=== PATIENT | male | born 1945 | race Caucasian/White ===

== ENCOUNTER 2017-05-09 17:34 | Inpatient (IN) ==
[2017-05-09] MEDS ORDERED: IPRATROPIUM/ALBUTEROL 2.5mg-0.5mg/3ml NEB AEROSOL ONE (18:23)
--- NOTE | 2017-05-09 18:24 | Emergency Department Report ---
General Adult HPI - General Chief complaint: Shortness of Breath/Dyspnea Stated complaint: Difficulty Breathing Time Seen by Provider: 05/09/17 18:10 Source: patient Mode of arrival: ambulatory Limitations: no limitations - History of Present Illness HPI narrative: 71-year-old male presents to emergency department with a chief complaint of a cough and shortness of breath. Patient has a history of COPD. Patient is on 2 L per nasal cannula at all time. Patient notes that on Wednesday of this past week he began experience a productive cough of cesar sputum. Patient notes improvement with his nebulizers. No other complaints or associated symptoms. Symptoms have been persistent in nature since onset. Patient was at home in independent living when his symptoms began. Symptoms have been persistent in nature since onset. Patient denies any pain or discomfort. This is similar to patient's prior symptoms in the past. - Related Data Home Medications Medication Instructions Recorded Confirmed Aspirin 325 mg PO DAILY #0 11/01/13 05/09/17 Atorvastatin Calcium [Lipitor] 10 mg PO DAILY #0 11/01/13 05/09/17 Etodolac 300 mg PO DAILY #0 11/01/13 05/09/17 Lisinopril 10 mg PO DAILY #0 02/11/16 05/09/17 Tamsulosin HCl [Flomax] 0.4 mg PO DAILY #0 02/11/16 05/09/17 Amlodipine Besylate 5 mg PO DAILY #0 08/26/16 05/09/17 Budesonide 0.5 mg IH PRN PRN 05/09/17 05/09/17 Dm/Acetaminophen/Doxylamine 30 ml PO Q4H PRN 05/09/17 05/09/17 [Nighttime Cold-Flu Liquid] Gabapentin [Gabapentin] 300 mg PO HS 05/09/17 05/09/17 Guaifenesin/Dextromethorphan 1 each PO Q4H PRN 05/09/17 05/09/17 [Guaifenesin Dm 400-20 mg Tab] Phenylephrine/Dm/Acetaminop/GG 2 each PO Q4H PRN 05/09/17 05/09/17 [Multi-Symptom Cold Caplet] Allergies Allergy/AdvReac Type Severity Reaction Status Date / Time No Known Allergies Allergy Unverified 05/09/17 17:44 Review of Systems Constitutional: Denies: fever, chills Eyes: Denies: eye discharge, vision change ENT: Denies: throat pain, dental pain Cardiovascular: Denies: chest pain, dyspnea on exertion Respiratory: Reports: cough, dyspnea, wheezes. Denies: hemoptysis Gastrointestinal: Denies: abdominal pain, nausea, vomiting, diarrhea Genitourinary: Denies: urgency, dysuria Musculoskeletal: Denies: back pain, joint swelling Integumentary: Denies: erythema, rash Neurological: Denies: headache, weakness Psychiatric: Denies: anxiety, depression Endocrine: Denies: fatigue, heat or cold intolerance Hematological/Lymphatic: Denies: easy bleeding, easy bruising Allergic/Immunologic: Denies: facial swelling, urticaria PFSH Patient Stated Medical History Chronic Obstructive Pulmonary Yes Disease (COPD) Other Musculoskeletal Yes: ARTHRITIS Surgical History: Back Surgery Family History: Negative. - Social History Smoking status: Former smoker Substance use type: does not use Alcohol intake frequency: does not drink Physical Exam - Limitations Limitations: no limitations - General General appearance: alert, in no apparent distress - Normal Exams: Head:: Normocephalic without trauma Eyes:: Pupils are PERRLA w/ EOMI, No scleral icterus, irritation, or foreign bodies noted ENMT:: No facial trauma, nasal exudates, pharyngeal erythema, or exudates are noted Dental: No fractured, loose, or missing teeth noted Neck:: Full range of motion, without adenopathy, JVD, bruits or thyromegaly Chest/Respirations:: with good airflow, and symmetry bilaterally (course bilateral breath sounds with scattered wheezes.) Cardiovascular:: Regular rate and rhythm, without murmur or gallop, Pulses 2+ all extremities, capillary refill, <2 seconds all extremities Abdomen:: Bowel sounds positive, soft, non-tender, non-distended, no hepatosplenomegaly, masses or bruits noted Lymphatic:: No lymphadenopathy, or lymphedema noted Musculoskeletal:: No tenderness, or deformity noted, good range of motion, all extremities Integumentary:: No rashes, hives, or bruising noted, hair and nails, without abnormality Neurological:: Patient is alert, and oriented, cranial nerves, motor/sensory/ cerebellar, exams w/o gross deficits, to observation Psychiatric:: Patient exhibits, appropriate attention, emotion and affect Course Vital Signs Temperature 98.9 F 06/18/17 17:45 Pulse Rate 111 H 05/09/17 17:45 Respiratory Rate 92 H 05/09/17 17:45 Blood Pressure 136/63 05/09/17 17:45 Pulse Oximetry 32 L 05/09/17 17:45 Temperature 98.9 F 05/09/17 17:45 Pulse Rate 93 05/09/17 21:00 Respiratory Rate 20 05/09/17 18:34 Blood Pressure 155/70 H 05/09/17 21:00 Pulse Oximetry 94 05/09/17 21:00 Medical Decision Making - [facility] Narrative Medical decision making narrative: Labs / imaging were discussed in detail with the patient and questions are answered. Patient is given 500 mL normal saline intravenously times one. Patient is given DuoNeb treatment in the emergency department with improvement of symptoms. Patient is given Levaquin 750 mg IV times one. Patient is given Solu-Medrol 125 mg IV times one. Patient is admitted to the service of the hospitalist in improved condition. Patient was discussed with Dr. Li and will be admitted to the service of Dr. Eden. Patient is in agreement with the current plan of management. Patient does not require 30 mL/kg of normal saline as he is not hypotensive in the emergency department he does not have a lactic acid greater than 4. Patient is admitted to the hospital in improved condition. No further orders from accepting or consulting physicians who were in agreement with the current plan of management. Levaquin 750 mg IV 1 was ordered at 1937 when sepsis was considered. - Differential Diagnosis COPD, pneumonia, viral syndrome, ACS - Lab Data Result diagrams: 05/09/17 18:39 05/09/17 18:39 Lab Results 05/09/17 05/09/17 05/09/17 Range/Units 18:38 18:39 18:39 WBC 14.7 H (4.5-11.0) T/MM3 RBC 3.82 L (4.50-5.90) M/MM3 Hgb 11.7 L (13.5-17.5) GM/DL Hct 37.4 L (41-53) % MCV 97.9 (80-100) UM3 MCH 30.6 (26-34) UUG MCHC 31.3 (31-37) GM/DL RDW Std Deviation 51.4 H (36.9-50.2) FL Plt Count 204 (130-400) T/MM3 MPV 11.3 (9.4-12.4) UM3 Immature Gran % (Auto) Not performed Neut % (Auto) Not performed Lymph % (Auto) Not performed Rosebud % (Auto) Not performed Eos % (Auto) Not performed Baso % (Auto) Not performed Neut # Not performed Lymph # Not performed Rosebud # Not performed Baso # Not performed Abs Immat Gran (auto) Not performed Neutrophils % (Manual) 73.0 H (33-66) % Band Neutrophils % 9.0 H (0-6) % Lymphocytes % (Manual) 12.0 L (23-45) % Monocytes % (Manual) 5.0 (0-9.0) % Eosinophils % (Manual) 1.0 (0-4) % Neutrophils # (Manual) 10.7 H (1.8-7.7) T/MM3 Band Neutrophils # 1.3 T/MM3 Lymphocytes # (Manual) 1.8 (1-4.8) T/MM3 Monocytes # (Manual) 0.7 (0-0.8) T/MM3 Eosinophils # (Manual) 0.1 (0-0.5) T/MM3 RBC Morph Comment 1+ ovalocytes Turbidity < 20 (0-20) Sodium 148 H (134-144) MEQ/L Potassium 3.9 (3.6-5) MEQ/L Chloride 104 (98-107) MEQ/L Carbon Dioxide 28 (22-30) MEQ/L Anion Gap 16 H (5-15) MEQ/L BUN 21.0 H (9-20) MG/DL Creatinine 1.0 (0.8-1.5) MG/DL GFR Calculation 73 BUN/Creatinine Ratio 21 (6-26) RATIO Glucose 184 H (75-110) MG/DL Calculated Osmolality 292 H (261-280) MOSM/KG Calcium 9.2 (8.4-10.2) MG/DL Total Bilirubin 0.70 (0.20-1.30) MG/DL Icterus Index < 2 (0-7) AST 17 (17-59) U/L ALT 33 (21-72) U/L Alkaline Phosphatase 148 H (38-126) U/L Troponin I 0.014 (0-0.12) ng/ml Total Protein 7.8 (6.3-8.2) G/DL Albumin 4.3 (3.5-5.0) G/DL Globulin 3.5 (2.4-3.6) G/DL Albumin/Globulin Ratio 1.2 (1.1-2.2) RATIO Plasma Lactate 1.3 (0.6-2.2) MMOL/L Procalcitonin 5.91 H* NG/ML Specimen Hemolysis < 15 (0-25) - Radiology Data CXR - bilateral infiltrates. otherwise no acute processes. - EKG Data EKG #1 EKG results narrative: Sinus tachycardia. Left bundle branch block. 100 beats per minute. No STEMI. Similar to 12/16/2016. Disposition Clinical Impression: Community acquired pneumonia, Acute exacerbation of chronic obstructive airways disease Condition: Improved Time of Disposition: 19:15 (Admit. Micha. ) - Seen By: physician
[2017-05-09] MEDS ORDERED: METHYLPREDNISOLONE SOD SUCC 125mg/2ml INJECTION IVP ONE (19:37)
[2017-05-09] MEDS ORDERED: NS 1,000 ML IV ONE (19:38)
[2017-05-09] MEDS ORDERED: LEVOFLOXACIN PREMIX 750 MG/150 ML BAG IV SCH (19:45)
--- NOTE | 2017-05-09 19:57 | XRay Report ---
EXAM: XR chest 2V HISTORY: Cough LOCATION OF DICTATION: [facility] COMPARISON: Prior examination dated 12/18/2016 FINDINGS: The cardiomediastinal silhouette is normal. The mediastinum is not widened. The trachea is midline. The pulmonary vascularity is not engorged. There is been interval development of bilateral lower lobe patchy alveolar and interstitial infiltrates and left upper lobe infiltrate. The costophrenic angles are sharp. The bony thorax is stable. IMPRESSION: 1. Interval development of bilateral patchy alveolar and interstitial infiltrates left greater than right. .
[2017-05-09] MEDS ORDERED: CALCIUM CARBONATE Chewable 500mg TABLET PO PRN (21:26)
[2017-05-09] MEDS ORDERED: ACETAMINOPHEN 325 MG TABLET PO PRN (21:26)
[2017-05-09] MEDS ORDERED: ONDANSETRON 4 MG/2 ML INJECTION IVP PRN (21:26)
[2017-05-09] MEDS: LR 1,000 ML IV SCH (21:40)
[2017-05-09] MEDS: METHYLPREDNISOLONE SOD SUCC 125mg/2ml INJECTION IVP SCH (22:10)
[2017-05-09] MEDS: BUDESONIDE INH.SOLN 0.5mg/2ml NEB IH SCH (22:30)
[2017-05-09] MEDS: ALBUTEROL 2.5mg/3ml (0.083%) NEB AEROSOL PRN (22:30)
--- NOTE | 2017-05-09 23:44 | History & Physical Report ---
History of Present Illness Date: 05/09/17 Chief complaint: cough, shortness of breath HPI: This is a 71 y/o male with h/o O2-dependent COPD, HTN, HLD and other medical issues who presents [place] [facility] [place] w/ chief concern of increasing cough and shortness of breath. Patient states that symptoms started this past w / "cold" symptoms and the cough and shortness of breath worse today despite "treating at home" so patient decided to come to ER. Patient states cough is productive of thick dark cesar sputum. Patient is normally on 2 L/min O2 per NC continuously however in ER requiring 3-4 L/min to keep sats > 90%. Patient denies f/c/s, denies chest pain, denies GRACE and denies change in bowel/ bladder function. In ED, patient received 2 Neb treatments w/ DuoNeb and started to feel better. In addition patient received 125mg IV SoluMedrol x one and IVFs. Patient on CXR noted to have bibasilar infiltrates c/w bilateral pneumonia. Patient's ProCalcitonin was 5.91, lactate not elevated, WBC = 14.7 w/ left shift and Na = 148 and K = 3.9. Patient's EKG showed old LBBB and troponin was negative. Patient received IV Levaquin 750mg x one in ER. Patient to be admitted to the Hospitalist service for further evaluation and management. Patient at the time that I saw him via In Touch technology had improved and stated that he felt less short of breath and his cough had improved. Review of Systems Review of systems: 10 point ROS negative except that as noted in the HPI - Integumentary/Breasts Integumentary: Absent: erythema, rash PFSH Patient Stated Medical History Dental Problems Yes: bridge for top teeth Hypertension Yes Chronic Obstructive Pulmonary Yes Disease (COPD) Other Musculoskeletal Yes: ARTHRITIS Medical History Updates: HLD; Smoked tobacco cigarettes for 52 years, quit in 2012 Surgical History: Back Surgery Family History: Patient states that he cannot think of any significant Family History - Social History Smoking status: Former smoker Medications Home Medications Medication Instructions Recorded Confirmed Type Aspirin 325 mg PO DAILY #0 11/01/13 05/09/17 History Atorvastatin Calcium [Lipitor] 10 mg PO DAILY #0 11/01/13 05/09/17 History Etodolac 300 mg PO DAILY #0 11/01/13 05/09/17 History Lisinopril 10 mg PO DAILY #0 02/11/16 05/09/17 History Tamsulosin HCl [Flomax] 0.4 mg PO DAILY #0 02/11/16 05/09/17 History Amlodipine Besylate 5 mg PO DAILY #0 08/26/16 05/09/17 History Budesonide 0.5 mg IH PRN PRN 05/09/17 05/09/17 History Dm/Acetaminophen/Doxylamine 30 ml PO Q4H PRN 05/09/17 05/09/17 History [Nighttime Cold-Flu Liquid] Gabapentin [Gabapentin] 300 mg PO HS 05/09/17 05/09/17 History Guaifenesin/Dextromethorphan 1 each PO Q4H PRN 05/09/17 05/09/17 History [Guaifenesin Dm 400-20 mg Tab] Phenylephrine/Dm/Acetaminop/GG 2 each PO Q4H PRN 05/09/17 05/09/17 History [Multi-Symptom Cold Caplet] Allergies Allergy/AdvReac Type Severity Reaction Status Date / Time No Known Allergies Allergy Unverified 05/09/17 17:44 Exam Vital Signs: Temp Pulse Resp BP Pulse Ox 98.9 F 95 16 155/70 H 94 05/09/17 22:53 05/09/17 22:53 05/09/17 22:53 05/09/17 21:00 05/09/17 22:53 Telemetry Ectopy: Bundle Branch Block Height: 1.73 m Weight: 85.2 kg Body Mass Index: 28.5 - Constitutional Present: no acute distress, well nourished, well developed - Routine HEENT Exam Head: Present: normocephalic, atraumatic Eye: Present: EOMI, PERRL. Absent: conjunctival icterus, scleral injection ENT: Present: mucous membranes dry - Routine Neck Exam Present: supple, full ROM. Absent: JVD - Routine Respiratory Exam Present: decreased breath sounds, prolonged expiratory phase, crackles (at the bases bilaterally). Absent: accessory muscle use, respiratory distress - Routine Cardiovascular Exam Present: S1, S2 - Routine Abdominal Exam Present: soft, normoactive bowel sounds, non distended. Absent: tenderness, non tender - Routine Extremities Exam Absent: cyanosis, clubbing, edema - Routine Neurological Exam Present: alert, oriented X3 - Routine Psychiatric Exam Present: normal affect, normal thought process, cooperative, good insight Results - Labs CBC & Chem 7: 05/09/17 18:39 05/09/17 18:39 Assessment and Plan (1) Acute exacerbation of chronic obstructive airways disease Current visit: Yes Status: Acute (2) Community acquired pneumonia Current visit: Yes Status: Acute Resuscitation Status: Full Code Assessment and Plan: Assessment: 1) Acute Sepsis POA - elevated WBC, tachycardia on admission, bandemia 2) Acute CAP POA 3) Acute exacerbation of COPD 4) Acute on Chronic hypoxic respiratory failure 5) HTN 6) HLD 7) Osteoarthritis Plan: Admit to Hospitalist service Continue IV Levaquin Solu-Medrol 125mg IV q 6 hours for now, then wean as indicated clinically DuoNeb QID Prn Albuterol nebs q 4 hours prn SCDs Budesonide BID RT consult IVFs at 75 cc/hour that of LR d/t patient's elevated sodium and K of 3.9 Labs in AM including ProCalcitonin Regular diet as tolerated I discussed the plan of care with the patient and the patient verbalized understanding and agreement. Sepsis Assessment - Focused Exam Vital Signs Temp Pulse Resp BP Pulse Ox 05/09/17 22:53 98.9 F 95 16 94 05/09/17 22:30 18 94 05/09/17 21:00 93 155/70 H 94 05/09/17 20:45 94 94 Hospital Course Summary Disclaimer: The visit summary below is not to be considered part of the above Progress Note.
[2017-05-10] MEDS: GABAPENTIN 300 MG CAPSULE PO SCH ×2 (00:05→21:00)
[2017-05-10] MEDS: METHYLPREDNISOLONE SOD SUCC 125mg/2ml INJECTION IVP SCH ×2 (03:40→09:29)
[2017-05-10] MEDS: ALBUTEROL 2.5mg/3ml (0.083%) NEB AEROSOL PRN ×2 (04:58→10:50)
[2017-05-10] MEDS: BUDESONIDE INH.SOLN 0.5mg/2ml NEB IH SCH ×2 (07:41→19:52)
[2017-05-10] MEDS: IPRATROPIUM/ALBUTEROL 2.5mg-0.5mg/3ml NEB IH SCH ×4 (07:41→19:52)
[2017-05-10] MEDS: AMLODIPINE 5 MG TABLET PO SCH (09:28)
[2017-05-10] MEDS: ATORVASTATIN 10 MG TABLET PO SCH (09:28)
[2017-05-10] MEDS: LISINOPRIL 10 MG TABLET PO SCH (09:28)
[2017-05-10] MEDS: TAMSULOSIN 0.4 MG CAPSULE PO SCH (09:28)
[2017-05-10] MEDS: ASPIRIN 325 MG TABLET PO SCH (09:28)
--- NOTE | 2017-05-10 10:18 | Progress Note ---
Subjective: Pt reports cough and sob is improved this am. Denies any cp, n/v/d, f/c. Would like his neurontin increased to bid. Objective Vital signs: Temp Pulse Resp BP Pulse Ox 96.4 F L 98 20 150/84 H 91 05/10/17 08:09 05/10/17 08:09 05/10/17 08:09 05/10/17 08:09 05/10/17 08:09 Weight: 85.9 kg - Constitutional Present: no acute distress, well nourished, well developed - Routine HEENT Exam Head: Present: normocephalic, atraumatic - Routine Respiratory Exam Absent: wheezes Comments: Decreased breath sounds in lower bases - Routine Cardiovascular Exam Present: no murmur, tachycardia - Routine Abdominal Exam Present: soft, non distended, non tender - Routine Extremities Exam Present: no edema. Absent: cyanosis, clubbing - Routine Skin Exam Present: dry, warm - Routine Neurological Exam Present: alert, oriented X3 Results - Labs CBC & Chem 7: 05/10/17 04:57 05/10/17 04:57 Assessment and Plan (1) Community acquired pneumonia Current visit: Yes Status: Acute (2) Acute exacerbation of chronic obstructive airways disease Current visit: Yes Status: Acute Assessment and Plan: Severe Sepsis 2/2 CAP -CXR shows L>R infiltrate, LA 2.4-->1.8 -Cont. Levaquin, steroids and breathing tx's -O2 requirement back to baseline at 2L O2 Acute exacerbation of COPD 2/2 CAP -Abx, breathing tx's, prednisone 40mg D2 -Improved Acute hypoxic resp. failure -On 2L O2 at home, was requiring 4L but back to 2L this am -Cont. O2 support, tx per above HTN -Cont. home amlodipine, lisinopril HLD -Cont. home statin Ppx -DVT-SCD Sepsis Assessment - Evaluation Sepsis screening result: Severe Sepsis Risk - Focused Exam Vital Signs Temp Pulse Resp BP Pulse Ox 05/10/17 08:09 96.4 F L 98 20 150/84 H 91 05/10/17 07:30 20 94 05/10/17 04:52 20 95 05/10/17 00:00 97.6 F 99 18 134/68 93 05/09/17 22:53 98.9 F 95 16 94 05/09/17 22:30 18 94 Respiratory exam: Present: decreased breath sounds, prolonged expiratory phase, crackles (at the bases bilaterally). Absent: accessory muscle use, respiratory distress Cardiovascular exam: Present: S1, S2 Capillary refill: < 2-3 Seconds Hospital Course Summary Disclaimer: The visit summary below is not to be considered part of the above Progress Note. Hospital Course: 05/10/17 10:18 Pt admitted with severe sepsis 2/2 CAP and COPD exacerbation. Responding to abx , breathing tx's, and steroid tx well. Will cont. to monitor.
[2017-05-10] MEDS ORDERED: 1/2 NS 1,000 ML IV SCH ×2 (11:06→11:23)
[2017-05-10] MEDS: LR 1,000 ML IV SCH (14:46)
[2017-05-10] MEDS: ETODOLAC 500 MG PO SCH (17:47)
[2017-05-10] MEDS ORDERED: LEVOFLOXACIN PREMIX 750 MG/150 ML BAG IV SCH (20:00)
[2017-05-10] MEDS ORDERED: BENZOCAINE/MENTHOL SORE THROAT LOZENGE MM PRN (21:25)
[2017-05-10] MEDS ORDERED: BENZONATATE 100 MG CAPSULE PO PRN (21:31)
[2017-05-11] MEDS: ALBUTEROL 2.5mg/3ml (0.083%) NEB AEROSOL PRN (02:55)
[2017-05-11] MEDS: IPRATROPIUM/ALBUTEROL 2.5mg-0.5mg/3ml NEB IH SCH ×4 (07:55→19:05)
[2017-05-11] MEDS: BUDESONIDE INH.SOLN 0.5mg/2ml NEB IH SCH ×2 (07:55→19:05)
--- NOTE | 2017-05-11 09:31 | Progress Note ---
Subjective: Pt doing well this am. Reports mild sob but overall feels much better then on admission. Denies any cp, n/v/d, f/c. Objective Vital signs: Temp Pulse Resp BP Pulse Ox 97 F 84 28 H 155/79 H 94 05/11/17 07:43 05/11/17 07:43 05/11/17 07:55 05/11/17 07:43 05/11/17 07:55 Rhythm: Normal Sinus Rhythm Weight: 86.7 kg - Constitutional Present: no acute distress, well nourished, well developed - Routine HEENT Exam Head: Present: normocephalic, atraumatic Eye: Present: EOMI ENT: Present: mucous membranes moist - Routine Respiratory Exam Present: wheezes Comments: mild expiratory wheezes - Routine Cardiovascular Exam Present: RRR, no murmur - Routine Abdominal Exam Present: soft, non distended, non tender - Routine Extremities Exam Present: no edema. Absent: cyanosis, clubbing - Routine Skin Exam Present: intact, dry, warm - Routine Neurological Exam Present: alert, oriented X3 Results - Labs CBC & Chem 7: 05/11/17 04:50 05/11/17 04:50 Assessment and Plan (1) Community acquired pneumonia Current visit: Yes Status: Acute (2) Acute exacerbation of chronic obstructive airways disease Current visit: Yes Status: Acute Assessment and Plan: Severe Sepsis 2/2 CAP -Severe sepsis resolved -Procal improving -CXR shows L>R infiltrate, LA 2.4-->1.8 -Cont. Levaquin D3 but changed to PO, steroids and breathing tx's -O2 requirement back to baseline at 2L O2 Acute exacerbation of COPD 2/2 CAP -Abx, breathing tx's, prednisone 40mg D3 -Improved Acute hypoxic resp. failure -Resolved -On 2L O2 at home, at baseline -Cont. O2 support, tx per above HTN -Cont. home amlodipine, lisinopril HLD -Cont. home statin Ppx -DVT-lovenox Sepsis Assessment - Evaluation Sepsis screening result: No Definite Risk - Focused Exam Vital Signs Temp Pulse Resp BP Pulse Ox 05/11/17 07:55 28 H 94 05/11/17 07:43 97 F 84 20 155/79 H 94 05/11/17 02:55 24 93 05/11/17 00:26 97.1 F 95 20 144/75 H 92 Respiratory exam: Present: decreased breath sounds, prolonged expiratory phase, crackles (at the bases bilaterally). Absent: accessory muscle use, respiratory distress Cardiovascular exam: Present: S1, S2 Capillary refill: < 2-3 Seconds Hospital Course Summary Disclaimer: The visit summary below is not to be considered part of the above Progress Note. Hospital Course: 05/10/17 10:18 Pt admitted with severe sepsis 2/2 CAP and COPD exacerbation. Responding to abx , breathing tx's, and steroid tx well. Will cont. to monitor. 05/11/17 09:31 Pt continues to improve with abx, steroids and breathing tx's. Will cont. to monitor and plan for discharge tomorrow.
[2017-05-11] MEDS: LISINOPRIL 10 MG TABLET PO SCH (09:51)
[2017-05-11] MEDS: AMLODIPINE 5 MG TABLET PO SCH (09:51)
[2017-05-11] MEDS: ATORVASTATIN 10 MG TABLET PO SCH (09:52)
[2017-05-11] MEDS: ETODOLAC 500 MG PO SCH (09:52)
[2017-05-11] MEDS: TAMSULOSIN 0.4 MG CAPSULE PO SCH (09:52)
[2017-05-11] MEDS: PredniSONE 20 MG TABLET PO SCH (09:52)
[2017-05-11] MEDS: ASPIRIN 325 MG TABLET PO SCH (09:55)
[2017-05-11] MEDS: ENOXAPARIN 40 MG/0.4 ML INJECTION SQ SCH (12:38)
[2017-05-11] MEDS: LEVOFLOXACIN 750 MG TABLET PO SCH (16:10)
[2017-05-11] MEDS: GABAPENTIN 300 MG CAPSULE PO SCH (21:06)
[2017-05-12] MEDS: LEVOFLOXACIN 750 MG TABLET PO SCH (05:47)
[2017-05-12] MEDS: IPRATROPIUM/ALBUTEROL 2.5mg-0.5mg/3ml NEB IH SCH ×2 (07:47→10:56)
[2017-05-12] MEDS: BUDESONIDE INH.SOLN 0.5mg/2ml NEB IH SCH (07:47)
[2017-05-12] MEDS: ETODOLAC 500 MG PO SCH (09:03)
[2017-05-12] MEDS: ASPIRIN 325 MG TABLET PO SCH (09:03)
[2017-05-12] MEDS: ENOXAPARIN 40 MG/0.4 ML INJECTION SQ SCH (09:03)
[2017-05-12] MEDS: PredniSONE 20 MG TABLET PO SCH (09:04)
[2017-05-12] MEDS: TAMSULOSIN 0.4 MG CAPSULE PO SCH (09:04)
[2017-05-12] MEDS: AMLODIPINE 5 MG TABLET PO SCH (09:04)
[2017-05-12] MEDS: ATORVASTATIN 10 MG TABLET PO SCH (09:04)
[2017-05-12] MEDS: LISINOPRIL 10 MG TABLET PO SCH (09:04)
--- NOTE | 2017-05-12 10:32 | Discharge Summary ---
Discharge Plan - Med Rec/Dispo Referrals/Follow Up: Levi Swartz MD [Family Provider] - 1 Week (Please schedule follow up apt for 1 week) [place] Instructions: COPD (Chronic Obstructive Pulmonary Disease) (GEN), Pneumonia (GEN) Prescriptions: New Acetaminophen [Tylenol] 650 mg PO Q5HR PRN PRN Reason: Discomfort Albuterol Neb (0.083%) [Proventil Neb (0.083%)] 2.5 mg AEROSOL Q2H PRN #1 ampul PRN Reason: shortness of breath Benzonatate [Tessalon Perles] 100 mg PO TID PRN #20 cap PRN Reason: Cough Levofloxacin [Levaquin] 750 mg PO ACB #6 CALCIUM CARBONATE Chewable [Tums] 1,000 mg PO Q4H PRN PRN Reason: Dyspepsia PredniSONE [Deltasone] 40 mg PO WB #4 Continue Atorvastatin Calcium [Lipitor] 10 mg PO DAILY #0 Tamsulosin HCl [Flomax] 0.4 mg PO DAILY #0 Lisinopril 10 mg PO DAILY #0 Amlodipine Besylate 5 mg PO DAILY #0 Gabapentin 300 mg PO HS Budesonide 0.5 mg IH PRN PRN PRN Reason: Shortness Of Air Etodolac 300 mg PO DAILY #0 Aspirin 325 mg PO DAILY #0 No Action Guaifenesin/Dextromethorphan [Guaifenesin Dm 400-20 mg Tab] 1 each PO Q4H PRN PRN Reason: Cold Symptoms Phenylephrine/Dm/Acetaminop/GG [Multi-Symptom Cold Caplet] 2 each PO Q4H PRN PRN Reason: Cold Symptoms Dm/Acetaminophen/Doxylamine [Nighttime Cold-Flu Liquid] 30 ml PO Q4H PRN PRN Reason: Cold Symptoms Discharge Instructions/Outpatient Orders: Final Provider Discharge Instructions Location: Determined By Patient - Disposition 01 Discharged Home, Self-Care
--- NOTE | 2017-05-12 11:41 | Discharge Summary ---
Discharge Information Date of admission: 05/09/17 20:43 Attending Physician: Jw Eden MD Primary care physician: Levi Swartz MD - Discharge Diagnosis (1) Community acquired pneumonia Status: Acute (2) Acute exacerbation of chronic obstructive airways disease Status: Acute - Laboratory Labs: 05/11/17 04:50 05/11/17 04:50 History of Present Illness HPI: This is a 71 y/o male with h/o O2-dependent COPD, HTN, HLD and other medical issues who presents to [facility] ER w/ chief concern of increasing cough and shortness of breath. Patient states that symptoms started this past w / "cold" symptoms and the cough and shortness of breath worse today despite "treating at home" so patient decided to come to ER. Patient states cough is productive of thick dark cesar sputum. Patient is normally on 2 L/min O2 per NC continuously however in ER requiring 3-4 L/min to keep sats > 90%. Patient denies f/c/s, denies chest pain, denies GRACE and denies change in bowel/ bladder function. In ED, patient received 2 Neb treatments w/ DuoNeb and started to feel better. In addition patient received 125mg IV SoluMedrol x one and IVFs. Patient on CXR noted to have bibasilar infiltrates c/w bilateral pneumonia. Patient's ProCalcitonin was 5.91, lactate not elevated, WBC = 14.7 w/ left shift and Na = 148 and K = 3.9. Patient's EKG showed old LBBB and troponin was negative. Patient received IV Levaquin 750mg x one in ER. Patient to be admitted to the Hospitalist service for further evaluation and management. Patient at the time that I saw him via In Touch technology had improved and stated that he felt less short of breath and his cough had improved. Hospital Course Hospital course: Brief Summary was admitted with severe sepsis 2/2 CAP with CXR showing L>R bibasilar infiltrate. Pt was also diagnosed with COPD exacerbation 2/2 pna. Pt did well with Levaquin, breathing tx's and prednisone. Pt's procalcitonin trended from ~6 to ~1. Blood cx's were negative, respiratory viral panel was negative as well. Pt was doing well on day of discharge and was on his baseline 2L O2. Pt was sent out on 10 day total levaquin tx and 5 day total of Prednisone Discharge Plan - Med Rec/Dispo Referrals/Follow Up: Levi Swartz MD [Family Provider] - 1 Week (Please schedule follow up apt for 1 week [phone] APPOITMENT WITH [facility]AG[facility] 05/19 9:30.) [facility] Instructions: COPD (Chronic Obstructive Pulmonary Disease) (GEN), Pneumonia (GEN) Prescriptions: New Acetaminophen [Tylenol] 650 mg PO Q5HR PRN PRN Reason: Discomfort Albuterol Neb (0.083%) [Proventil Neb (0.083%)] 2.5 mg AEROSOL Q2H PRN #1 ampul PRN Reason: shortness of breath Benzonatate [Tessalon Perles] 100 mg PO TID PRN #20 cap PRN Reason: Cough Levofloxacin [Levaquin] 750 mg PO ACB #6 CALCIUM CARBONATE Chewable [Tums] 1,000 mg PO Q4H PRN PRN Reason: Dyspepsia PredniSONE [Deltasone] 40 mg PO WB #4 Continue Atorvastatin Calcium [Lipitor] 10 mg PO DAILY #0 Tamsulosin HCl [Flomax] 0.4 mg PO DAILY #0 Lisinopril 10 mg PO DAILY #0 Amlodipine Besylate 5 mg PO DAILY #0 Gabapentin 300 mg PO HS Budesonide 0.5 mg IH PRN PRN PRN Reason: Shortness Of Air Etodolac 300 mg PO DAILY #0 Aspirin 325 mg PO DAILY #0 No Action Guaifenesin/Dextromethorphan [Guaifenesin Dm 400-20 mg Tab] 1 each PO Q4H PRN PRN Reason: Cold Symptoms Phenylephrine/Dm/Acetaminop/GG [Multi-Symptom Cold Caplet] 2 each PO Q4H PRN PRN Reason: Cold Symptoms Dm/Acetaminophen/Doxylamine [Nighttime Cold-Flu Liquid] 30 ml PO Q4H PRN PRN Reason: Cold Symptoms Discharge Instructions/Outpatient Orders: Final Provider Discharge Instructions Location: Determined By Patient - Disposition 01 Discharged Home, Self-Care
== END 2017-05-12 13:30 | disposition home or self-care (01) | DRG 871 ==
LOC: ED 17:34 → MED 20:43
PROVIDERS: ADMIT Internal Medicine; ATTEND Hospitalist

== ENCOUNTER 2017-12-16 15:47 | Observation (INO) ==
[2017-12-16] MEDS ORDERED: SALINE FLUSH 10ml SYRINGE IVF PRN (15:54)
[2017-12-16] MEDS ORDERED: ASPIRIN 81 MG CHEWABLE TABLET PO ONE (16:07)
--- NOTE | 2017-12-16 16:08 | Emergency Department Report ---
SOB HPI - General Chief Complaint: Shortness of Breath/Dyspnea Stated Complaint: SOA Time Seen by Provider: 12/16/17 15:54 Source: patient Mode of arrival: EMS Limitations: no limitations - History of Present Illness He has been a little more short of breath today at home. He lives at [facility] in the assisted living unit. He got up to walk to the kitchen to make some food around 1500. He felt onset of worsening SOA. Went back to his living room and started Albuterol neb. He does wear O2 at 3L per NC. He called for the nurses to come help and they called 911. Per EMS his RA sats were 75%. He had the canula on but the O2 was not on. They did give Solumedrol 125mg and gave Albuterol x3. Upon arrival he is tachypneic but speaking in several word sentences. Does deny any chest pain. Noted tachycardia on the monitor with possible vtach vs bundle branch. EKG done and does show left bundle with some possible St changes. EKG given to Dr Seth to overread. 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 Does feel like his breathing is improving. Complaint: shortness of breath Onset (ago): hour(s) Severity: severe Consistency/Duration: constant Relieving factors: nothing Exacerbating factors: movement Known history of: COPD Associated symptoms: wheezing - Related Data Home Medications Medication Instructions Recorded Confirmed Etodolac 300 mg PO DAILY #0 11/01/13 12/16/17 Tamsulosin HCl [Flomax] 0.4 mg PO HS #0 02/11/16 12/16/17 Budesonide 0.5 mg IH PRN PRN 05/09/17 12/16/17 Gabapentin 600 mg PO BID 05/09/17 12/16/17 Amlodipine [Norvasc] 5 mg PO DAILY 11/18/17 12/16/17 Aspirin 325 mg PO DAILY 11/18/17 12/16/17 Guaifenesin [Mucinex] 400 mg PO Q4H PRN 11/18/17 12/16/17 Lisinopril [Prinivil] 10 mg PO DAILY 11/18/17 12/16/17 Acetaminophen 650 mg PO Q5H PRN 12/16/17 12/16/17 Atorvastatin [Lipitor] 10 mg PO HS 12/16/17 12/16/17 Benzonatate [Tessalon Perles] 100 mg PO TID PRN 12/16/17 12/16/17 Calcium Carbonate [Calci-Chew] 1,000 mg PO Q4H PRN 12/16/17 12/16/17 Cpm/PE/Dm/Acetaminophen/Guaifn 2 cap PO Q4H PRN 12/16/17 12/16/17 [Tylenol Cold-Flu Day-Nt Caplet] Dm/Acetaminophen/Doxylamine 30 ml PO Q4H PRN 12/16/17 12/16/17 [Nighttime Cold-Flu Liquid] Loratadine [Claritin] 10 mg PO DAILY PRN 12/16/17 12/16/17 Pramipexole Di-HCl [Mirapex] 0.25 mg PO HS 12/16/17 12/16/17 Previous Rx's Medication Instructions Recorded Albuterol Neb (0.083%) [Proventil 2.5 mg AEROSOL Q2H PRN #1 ampul 05/12/17 Neb (0.083%)] Allergies Allergy/AdvReac Type Severity Reaction Status Date / Time No Known Allergies Allergy Verified 12/16/17 16:40 Review of Systems Constitutional: Denies: fever, chills, weakness Cardiovascular: Denies: chest pain, palpitations, dyspnea on exertion, edema Respiratory: Reports: dyspnea. Denies: cough, wheezes Gastrointestinal: Denies: abdominal pain, nausea, vomiting, diarrhea Integumentary: Denies: rash Neurological: Denies: headache, weakness, numbness, paresthesias PFSH Patient Stated Medical History Dental Problems Yes: bridge for top teeth Hypertension Yes Chronic Obstructive Pulmonary Yes: emphysema Disease (COPD) Hx Benign Prostatic Yes Hyperplasia Other Musculoskeletal Yes: ARTHRITIS, RLS Clinic Medical History (Last Reviewed 12/05/17 @ 11:02 by DRAGAN Sher) Hypertension (Chronic Medical) Hyperlipemia (Chronic Medical) COPD (chronic obstructive pulmonary disease) (Chronic Medical) Enlarged prostate (Chronic Medical) Restless leg syndrome (Chronic Medical) Medical History Updates: HLD; Smoked tobacco cigarettes for 52 years, quit in 2012 Surgical History: *Back Surgery 2005. *Colonoscopy 2004 Family History: Family History (Last Reviewed 12/05/17 @ 11:03 by DRAGAN Sher) Other No significant family history - Social History Smoking status: Former smoker Physical Exam - Limitations Limitations: no limitations - General General appearance: alert, in no apparent distress - Normal Exams: ENMT:: No facial trauma, nasal exudates, pharyngeal erythema, or exudates are noted Neck:: Full range of motion, without adenopathy, JVD, bruits or thyromegaly Abdomen:: Bowel sounds positive, soft, non-tender, non-distended, no hepatosplenomegaly, masses or bruits noted Lymphatic:: No lymphadenopathy, or lymphedema noted Integumentary:: No rashes, hives, or bruising noted Neurological:: Patient is alert, and oriented Psychiatric:: Patient exhibits, appropriate attention, emotion and affect - Respiratory Respiratory exam: Present: wheezes (throughout, diminished throughout, decreased lung sounds, tachypneic) - Cardiovascular Cardiovascular exam: Present: tachycardia Course Vital Signs Pulse Oximetry 94 12/16/17 15:47 Temperature 96.3 F L 12/17/17 07:34 Pulse Rate 69 12/17/17 08:00 Respiratory Rate 20 12/17/17 11:10 Blood Pressure 156/73 H 12/17/17 07:34 Pulse Oximetry 96 12/17/17 11:10 Shortness of Breath/Dyspnea - [facility] Narrative Medical decision making narrative: 1610- Dr Cates paged and to ER. Comparison of old EKG from September 2017 does show that the left bundle is new. No cardiac history or cardiology visits in the past. Dr Cates to room for patient evaluation. Would recommend admission and workup with echo after labs and chest xray complete. Noted pulse down to 113 and underlying sinus rhythm. He does feel better with the breathing. Did talk with Dr Palma regarding new EKG changes and the discussion with Dr Cates. He will accept patient for OBS admission. - Lab Data Attestation: I reviewed the patient's lab results. Result diagrams: 12/17/17 06:36 12/17/17 06:36 Lab Results 12/16/17 12/16/17 12/16/17 Range/Units 16:06 16:06 16:06 WBC 12.7 H (4.5-11.0) T/MM3 RBC 4.23 L (4.50-5.90) M/MM3 Hgb 12.7 L (13.5-17.5) GM/DL Hct 40.3 L (41-53) % MCV 95.3 (80-100) UM3 MCH 30.0 (26-34) UUG MCHC 31.5 (31-37) GM/DL RDW Std Deviation 48.0 (36.9-50.2) FL Plt Count 196 (130-400) T/MM3 MPV 10.2 (9.4-12.4) UM3 Immature Gran % (Auto) 0.2 (0.0-0.5) % Neut % (Auto) 66.4 H (33-66) % Lymph % (Auto) 20.2 L (23-45) % [place] % (Auto) 9.4 H (0-9.0) % Eos % (Auto) 3.6 (0-4) % Baso % (Auto) 0.2 (0-2) % Neut # (Auto) 8.4 H (1.8-7.7) T/MM3 Lymph # (Auto) 2.6 (1-4.8) T/MM3 [place] # (Auto) 1.2 H (0-0.8) T/MM3 Eos # (Auto) 0.5 (0-0.5) T/MM3 Baso # (Auto) 0.0 (0-0.2) T/MM3 Abs Immat Gran (auto) 0.02 (0.00-0.03) T/MM3 D-Dimer 210 (0-230) NG/ML Turbidity < 20 (0-20) Sodium 142 (134-144) MEQ/L Potassium 4.1 (3.6-5) MEQ/L Chloride 102 (98-107) MEQ/L Carbon Dioxide 29 (22-30) MEQ/L Anion Gap 11 (5-15) MEQ/L BUN 17.0 (9-20) MG/DL Creatinine 0.9 (0.8-1.5) MG/DL GFR Calculation 83 BUN/Creatinine Ratio 19 (6-26) RATIO Glucose 130 H (75-110) MG/DL Calculated Osmolality 277 (261-280) MOSM/KG Calcium 9.0 (8.4-10.2) MG/DL Icterus Index < 2 (0-7) Troponin I < 0.012 (0-0.12) ng/ml Specimen Hemolysis < 15 (0-25) - Radiology Data Attestation: I reviewed the patient's radiology results. Date of Exam: 12/16/17 Ordering Provider: Munira Boles APRN Type of Exam(s): XR chest 2V Reason for Exam(s): dyspnea EXAM: XR chest 2V COMPARISON: 11/10/2017. 10/09/2017. 12/16/2016. HISTORY: dyspnea . FINDINGS:The lungs are hyperinflated with flattening of the diaphragms and increased AP diameter which could be related to chronic emphysematous changes. The cardiomediastinal silhouette is within limits of normal. The pulmonary vascularity appears unremarkable. The lungs are clear. There is no evidence for pleural effusion. There is no evidence for a pneumothorax. No osseous abnormalities are identified. IMPRESSION: No acute process identified. LOCATION OF DICTATION: [facility] [place] . Disposition Clinical Impression: COPD exacerbation, Left bundle branch block (LBBB) Disposition: 02 To [facility] Condition: Stable Time of Disposition: 17:20 - Seen By: midlevel
--- NOTE | 2017-12-16 16:53 | XRay Report ---
EXAM: XR chest 2V COMPARISON: 11/10/2017. 10/09/2017. 12/16/2016. HISTORY: dyspnea . FINDINGS:The lungs are hyperinflated with flattening of the diaphragms and increased AP diameter which could be related to chronic emphysematous changes. The cardiomediastinal silhouette is within limits of normal. The pulmonary vascularity appears unremarkable. The lungs are clear. There is no evidence for pleural effusion. There is no evidence for a pneumothorax. No osseous abnormalities are identified. IMPRESSION: No acute process identified. LOCATION OF DICTATION: [facility] [place] .
[2017-12-16 17:49] VITALS: BMI 30.4
--- NOTE | 2017-12-16 18:41 | History & Physical Report ---
History of Present Illness Date: 12/16/17 Chief complaint: Dyspnea, chest pressure HPI: Steve is a pleasant 72-year-old male with a known history of COPD and chronic oxygen dependency at 3 liters. He reports today around 1530. He was ambulating in the kitchen to make some food and had a sudden onset of increased shortness of breath. He gave himself albuterol nebulizer, however, this did not resolve his symptoms. He called nursing staff for assistance and called EMS. Patient was found to have room air saturations of 75%. Workup in the emergency room was performed. Count was found be slightly elevated at 12.7, hemoglobin 12.7, neutrophils 66%. Chemistry panel unremarkable. Troponin is undetectable, less than 0.012. EKG did reveal a new left bundle branch block was not present in September 2017. A chest x-ray showed no acute cardiopulmonary findings. Given the symptoms of shortness of breath with chest pressure accompanied with EKG changes, Dr. Cates was contacted and recommended admission for further cardiac evaluation and rule out. The hospitalist services were contacted and accepted patient for outpatient admission for further evaluation and treatment. It is expected that his stay will be less than 2 overnights Review of Systems All systems PM: 10-point ROS was reviewed, no additional remarkable complaints except - Cardiovascular Cardiovascular: Present: chest pain, dyspnea on exertion - Respiratory Respiratory: Present: dyspnea, dyspnea on exertion, wheezing Past Medical History Patient Stated Medical History COPD chronic oxygen use at 3 liters Hypertension BPH Hyperlipidemia Restless legs Medical History Updates: HLD; Smoked tobacco cigarettes for 52 years, quit in 2012 Surgical History: *Back Surgery 2005. *Colonoscopy 2004 Family History Updates: Father at age 40 from a "torn heart" during exertional work. Mother lived into her 80s without significant medical problems - Social History Smoking status: Former smoker Substance use type: does not use Alcohol intake frequency: does not drink Housing: assisted living facility Current occupational status: retired Current residence: Assisted Living Social history: PCP Dr Swartz Medications Home Medications Medication Instructions Recorded Confirmed Type Etodolac 300 mg PO DAILY #0 11/01/13 12/16/17 History Tamsulosin HCl [Flomax] 0.4 mg PO HS #0 02/11/16 12/16/17 History Budesonide 0.5 mg IH PRN PRN 05/09/17 12/16/17 History Gabapentin 600 mg PO BID 05/09/17 12/16/17 History Amlodipine [Norvasc] 5 mg PO DAILY 11/18/17 12/16/17 History Aspirin 325 mg PO DAILY 11/18/17 12/16/17 History Guaifenesin [Mucinex] 400 mg PO Q4H PRN 11/18/17 12/16/17 History Lisinopril [Prinivil] 10 mg PO DAILY 11/18/17 12/16/17 History Acetaminophen 650 mg PO Q5H PRN 12/16/17 12/16/17 History Atorvastatin [Lipitor] 10 mg PO HS 12/16/17 12/16/17 History Benzonatate [Tessalon Perles] 100 mg PO TID PRN 12/16/17 12/16/17 History Calcium Carbonate [Calci-Chew] 1,000 mg PO Q4H PRN 12/16/17 12/16/17 History Cpm/PE/Dm/Acetaminophen/Guaifn 2 cap PO Q4H PRN 12/16/17 12/16/17 History [Tylenol Cold-Flu Day-Nt Caplet] Dm/Acetaminophen/Doxylamine 30 ml PO Q4H PRN 12/16/17 12/16/17 History [Nighttime Cold-Flu Liquid] Loratadine [Claritin] 10 mg PO DAILY PRN 12/16/17 12/16/17 History Pramipexole Di-HCl [Mirapex] 0.25 mg PO HS 12/16/17 12/16/17 History Allergies Allergy/AdvReac Type Severity Reaction Status Date / Time No Known Allergies Allergy Verified 12/16/17 16:40 Exam Vital Signs: Temperature 97.8 F 12/16/17 17:38 Pulse Rate 91 12/16/17 17:38 Respiratory Rate 22 12/16/17 17:38 Blood Pressure 141/69 H 12/16/17 17:38 Pulse Oximetry 95 12/16/17 17:38 Height/Weight/BMI: Height 1.73 m Weight 90.7 kg Body Mass Index 30.4 Results - Labs CBC & Chem 7: 12/16/17 16:06 12/16/17 16:06 Assessment and Plan (1) Left bundle branch block (LBBB) Current visit: Yes Status: Acute (2) Dyspnea Current visit: Yes Status: Acute (3) Chest pain, rule out acute myocardial infarction Current visit: Yes Status: Acute Assessment and Plan: Impression Acute dyspnea Chest pain rule out [place] New Left Bundle branch block COPD- chronic oxygen use at 3 L Hypertension Hyperlipidemia BPH Restless legs Plan Admit patient to outpatient observation under care of Dr. Palma Continue with chronic oxygen therapy at 3 liters (Baseline) We will add DuoNeb breathing treatments 4 times a day and Pulmicort twice a day. Given underlying history of COPD. Consultation placed to Dr. Cates given recent EKG changes. Will obtain echocardiogram, monitor patient. Cardiac telemetry and obtain serial troponins to rule out acute cardiac event. Given sudden onset of dyspnea. Will obtain a d-dimer to rule out pulmonary emboli. If this is positive may consider CT of the chest. Patient requests to continue his routine Claritin and Mucinex Other home medications are reviewed SCDs to bilateral extremity for DVT prophylaxis Once patient is medically stabilized, may consider PT and OT consults given patient resides independently Patient does wish to be a do not resuscitate and this order is written Will discuss further orders and plan of care with attending, Dr. Palma. At time of discharge medical care will return to primary care provider, Dr. Swartz Addendum: read and appreciate the above note by nurse practitioner Cynthia Escamilla. I've seen the patient and examined independently today. Agree with the above findings : history, physical, assessment and plan. Comprehensive physical findings correlate to the above note. Dr. Cates is anticipating to perform an outpatient stress test on this gentleman afterwards Documented on [employer] speech to text. Efforts to correct speech recognition errors performed, but variation may exist - Physician Narrative Narrative: Date: 12/16/17 Time: 1836 Hospital Course Summary Disclaimer: The visit summary below is not to be considered part of the above Progress Note. Hospital Course: Impression Acute dyspnea Chest pain rule out [place] New Left Bundle branch block COPD- chronic oxygen use at 3 L Hypertension Hyperlipidemia BPH Restless legs Plan Admit patient to outpatient observation under care of Dr. Palma Continue with chronic oxygen therapy at 3 liters (Baseline) We will add DuoNeb breathing treatments 4 times a day and Pulmicort twice a day. Given underlying history of COPD. Consultation placed to Dr. Cates given recent EKG changes. Will obtain echocardiogram, monitor patient. Cardiac telemetry and obtain serial troponins to rule out acute cardiac event. Given sudden onset of dyspnea. Will obtain a d-dimer to rule out pulmonary emboli. If this is positive may consider CT of the chest. Patient requests to continue his routine Claritin and Mucinex Other home medications are reviewed SCDs to bilateral extremity for DVT prophylaxis Once patient is medically stabilized, may consider PT and OT consults given patient resides independently Patient does wish to be a do not resuscitate and this order is written Will discuss further orders and plan of care with attending, Dr. Palma. At time of discharge medical care will return to primary care provider, Dr. Swartz
[2017-12-16] MEDS ORDERED: ACETAMINOPHEN PO PRN (18:44)
[2017-12-16] MEDS ORDERED: GUAIFENESIN 400MG TABLET PO PRN (18:44)
[2017-12-16] MEDS ORDERED: BENZONATATE 100 MG CAPSULE PO PRN (18:44)
[2017-12-16] MEDS ORDERED: ACETAMINOPHEN 325 MG TABLET PO PRN (18:44)
[2017-12-16] MEDS ORDERED: DOXYLAMINE PO PRN (18:44)
[2017-12-16] MEDS ORDERED: [UNRECOGNIZED DRUG - OTHER] PO PRN (18:44)
[2017-12-16] MEDS ORDERED: LORATADINE 10 MG TABLET PO PRN (18:44)
[2017-12-16] MEDS: ACETAMINOPHEN 500 MG TABLET PO SCH ×2 (18:56→22:47)
[2017-12-16] MEDS ORDERED: CODEINE 30 MG TABLET PO PRN (18:59)
[2017-12-16] MEDS ORDERED: HYDROCODONE/CHLORPHENIRAMINE ER ORAL LIQ 5ml PO PRN (19:00)
[2017-12-16] MEDS: ALBUTEROL/IPRATROPIUM 2.5mg-0.5mg/3ml NEB AEROSOL SCH (20:12)
[2017-12-16] MEDS: BUDESONIDE INH.SOLN 0.5mg/2ml NEB AEROSOL SCH (20:12)
[2017-12-16] MEDS ORDERED: ATORVASTATIN 10 MG TABLET PO SCH (21:00)
[2017-12-16] MEDS ORDERED: PRAMIPEXOLE 0.25 MG TABLET PO SCH (21:00)
[2017-12-16] MEDS: GABAPENTIN 300 MG CAPSULE PO SCH (22:21)
[2017-12-16] MEDS ORDERED: ENOXAPARIN 40 MG/0.4 ML INJECTION SQ ONE (23:01)
--- NOTE | 2017-12-17 00:17 | Cardiology Consult Note ---
History of Present Illness Chief complaint: dyspnea. I was asked to see the patient in consultation for Abnormal EKG History of present illness: Patient was seen in emergency department on 4:10 PM. Mr. Luke a pleasant 72-year-old male without prior known heart disease, long-standing history of COPD and required frequent hospitalization. Has been his previous state of health requiring 3 L of oxygen, until about 1530 was ablated in his kitchen to make some food and had sudden onset increased shortness of breath and wheezing give himself albuterol nebulizer without improvement. Called nursing staff for assistance and the EMS was activated. Room air O2 saturation was 75%. He received 3 nebulizer treatments with improvement of his breathing. Also received IV steroid injection. He says his breathing is back to normal. Workup in the emergency room showed abnormal EKG and I was asked to with the patient follow-up for further management. he adamantly denies any chest pain pressure or diaphoresis. He denies recent cold-like symptoms sore throat and runny nose fever chills or phlegm production. His EKG in the emergency department showed normal sinus rhythm septal Q waves V1 through V4 and LBBB that is new. Initial troponin normal. Chest x-ray shows no heart failure or cardiomegaly. Denies any known heart disease previous stress test or heart catheter. Denies orthopnea PND or lower extremity edema. Patient has a hypertension hypercholesterolemia and significant smoking history see below, denies diabetes. He lives in assisted living and outside his COPD exacerbations, and he seems to manage activities of daily living. Denies any exertional chest pain. Review of Systems All systems PM: 10-point ROS was reviewed, no additional remarkable complaints except PFSH Patient Stated Medical History Dental Problems Yes: bridge for top teeth Hypertension Yes Chronic Obstructive Pulmonary Yes: emphysema Disease (COPD) Hx Benign Prostatic Yes Hyperplasia Other Musculoskeletal Yes: ARTHRITIS, RLS Clinic Medical History (Last Reviewed 12/05/17 @ 11:02 by DRAGAN Sher) Hypertension (Chronic Medical) Hyperlipemia (Chronic Medical) COPD (chronic obstructive pulmonary disease) (Chronic Medical) Enlarged prostate (Chronic Medical) Restless leg syndrome (Chronic Medical) Medical History Updates: HLD; Smoked tobacco cigarettes for 52 years, quit in 2012 Surgical History: *Back Surgery 2005. *Colonoscopy 2004 Family History: Family History (Last Reviewed 12/05/17 @ 11:03 by NATTY SherColeman) Other No significant family history Denies heart disease - Social History Smoking status: Former smoker Current residence: Assisted Living Medications Home Medications Medication Instructions Recorded Confirmed Type Etodolac 300 mg PO DAILY #0 11/01/13 12/16/17 History Tamsulosin HCl [Flomax] 0.4 mg PO HS #0 02/11/16 12/16/17 History Budesonide 0.5 mg IH PRN PRN 05/09/17 12/16/17 History Gabapentin 600 mg PO BID 05/09/17 12/16/17 History Amlodipine [Norvasc] 5 mg PO DAILY 11/18/17 12/16/17 History Aspirin 325 mg PO DAILY 11/18/17 12/16/17 History Guaifenesin [Mucinex] 400 mg PO Q4H PRN 11/18/17 12/16/17 History Lisinopril [Prinivil] 10 mg PO DAILY 11/18/17 12/16/17 History Acetaminophen 650 mg PO Q5H PRN 12/16/17 12/16/17 History Atorvastatin [Lipitor] 10 mg PO HS 12/16/17 12/16/17 History Benzonatate [Tessalon Perles] 100 mg PO TID PRN 12/16/17 12/16/17 History Calcium Carbonate [Calci-Chew] 1,000 mg PO Q4H PRN 12/16/17 12/16/17 History Cpm/PE/Dm/Acetaminophen/Guaifn 2 cap PO Q4H PRN 12/16/17 12/16/17 History [Tylenol Cold-Flu Day-Nt Caplet] Dm/Acetaminophen/Doxylamine 30 ml PO Q4H PRN 12/16/17 12/16/17 History [Nighttime Cold-Flu Liquid] Loratadine [Claritin] 10 mg PO DAILY PRN 12/16/17 12/16/17 History Pramipexole Di-HCl [Mirapex] 0.25 mg PO HS 12/16/17 12/16/17 History Allergies Allergy/AdvReac Type Severity Reaction Status Date / Time No Known Allergies Allergy Verified 12/16/17 16:40 Exam Vital signs: Temperature 97.8 F 12/16/17 17:38 Pulse Rate 91 12/16/17 20:18 Respiratory Rate 16 12/16/17 20:18 Blood Pressure 141/69 H 12/16/17 17:38 Pulse Oximetry 95 12/16/17 20:18 - Constitutional no acute distress, well nourished, well developed, other (chronically ill) - Routine HEENT Exam Head: Present: normocephalic, atraumatic Eye: Present: EOMI, PERRL ENT: Present: mucous membranes moist - Routine Neck Exam Present: normal carotid upstroke. Absent: JVD, carotid bruit, lymphadenopathy, thyromegaly - Routine Respiratory Exam Present: wheezes (occasional expiratory), distant breath sounds, diminished air movement. Absent: crackles - Routine Cardiovascular Exam Present: RRR, S1, S2 (distant), no murmur. Absent: gallop, rubs, S3, S4 - Routine Abdominal Exam Present: soft, normoactive bowel sounds, non distended, non tender - Routine Extremities Exam Present: no edema, pulses intact, normal capillary refill. Absent: cyanosis, clubbing, edema, extremity cold to touch - Routine Skin Exam Present: intact, dry. Absent: cyanosis, erythema - Routine Neurological Exam Present: alert, oriented X3, CN II-XII intact, moving all extremities, vision grossly intact, hearing grossly intact, normal speech. Absent: motor deficit, hemineglect, facial asymmetry - Routine Psychiatric Exam Present: normal affect, normal thought process, cooperative, good insight, good judgment. Absent: depressed, anxious Results 12/16/17 16:06 12/16/17 16:06 Cardiac Enzymes 12/16/17 Range/Units Troponin I <0.012 (0-0.12) ng/ml Intake and Output 12/16/17 1 Weight 90.7 kg Vital signs in the emergency room were all stable blood pressure and pulse rate were normal Patient Weight 12/17/17 06:59 Weight 90.7 kg - Imaging and Cardiology EKG results: image reviewed, other (serial EKGs. Reviewed In ER. No progressive changes.) - EKG Interpretation EKG: sinus rhythm Assessment and Plan - Assessment and Plan Abnormal EKG/LBBB Suspected coronary artery disease with possible old anteroseptal SD Dyspnea on exertion Severe COPD with acute exacerbation Hypertension Hyperlipidemia Significant smoking history Admit to telemetry bed for observation rule out SD by serial cardiac enzymes Echocardiogram the morning Aspirin No indication for thrombolytics Addendum Getting ready to see the patient 12:30 AM after contacted with slightly elevated troponin, no chest pain reported by the nurse. We will make sure his chest pain-free and stable. Low-dose Lovenox ordered as well as serial troponins. Patient received full aspirin earlier. Hospital Course Summary Disclaimer: The visit summary below is not to be considered part of the above Progress Note. Hospital Course: Impression Acute dyspnea Chest pain rule out SD New Left Bundle branch block COPD- chronic oxygen use at 3 L Hypertension Hyperlipidemia BPH Restless legs Plan Admit patient to outpatient observation under care of Dr. Palma Continue with chronic oxygen therapy at 3 liters (Baseline) We will add DuoNeb breathing treatments 4 times a day and Pulmicort twice a day. Given underlying history of COPD. Consultation placed to Dr. Cates given recent EKG changes. Will obtain echocardiogram, monitor patient. Cardiac telemetry and obtain serial troponins to rule out acute cardiac event. Given sudden onset of dyspnea. Will obtain a d-dimer to rule out pulmonary emboli. If this is positive may consider CT of the chest. Patient requests to continue his routine Claritin and Mucinex Other home medications are reviewed SCDs to bilateral extremity for DVT prophylaxis Once patient is medically stabilized, may consider PT and OT consults given patient resides independently Patient does wish to be a do not resuscitate and this order is written Will discuss further orders and plan of care with attending, Dr. Palma. At time of discharge medical care will return to primary care provider, Dr. Swartz
[2017-12-17] MEDS: ACETAMINOPHEN 500 MG TABLET PO SCH ×4 (01:55→14:41)
[2017-12-17] MEDS: BUDESONIDE INH.SOLN 0.5mg/2ml NEB AEROSOL SCH (06:30)
[2017-12-17] MEDS: ALBUTEROL/IPRATROPIUM 2.5mg-0.5mg/3ml NEB AEROSOL SCH ×2 (06:30→11:10)
[2017-12-17 06:45] VITALS: RESP 20
[2017-12-17 07:38] VITALS: BP 156/73; TEMP 96.3
[2017-12-17] MEDS ORDERED: SALINE FLUSH 10ml SYRINGE ONE (08:40)
[2017-12-17] MEDS ORDERED: REGADENOSON 0.4 MG/5 ML INJECTION IVP ONE (08:40)
[2017-12-17] MEDS ORDERED: LISINOPRIL 10 MG TABLET PO SCH (09:00)
[2017-12-17] MEDS ORDERED: ETODOLAC 500 MG PO SCH (09:00)
[2017-12-17] MEDS ORDERED: ASPIRIN 325 MG TABLET PO SCH (09:00)
[2017-12-17] MEDS ORDERED: AMLODIPINE 5 MG TABLET PO SCH (09:00)
[2017-12-17] MEDS: GABAPENTIN 300 MG CAPSULE PO SCH (09:18)
--- NOTE | 2017-12-17 10:54 | Progress Note ---
- Date 12/17/17 Subjective: Steve is seen today in follow up. He reports that he is feeling good without chest pain. He is on his baseline oxygen at 3 liters. Appetite is good, no difficulty with voiding. He is quite adamant about being discharged today. He states that [facility] as this helps his restless legs overnight. Objective Vital signs: Temperature 96.3 F L 12/17/17 07:34 Pulse Rate 71 12/17/17 07:34 Respiratory Rate 20 12/17/17 07:34 Blood Pressure 156/73 H 12/17/17 07:34 Pulse Oximetry 98 12/17/17 07:34 Height/Weight/BMI: Height 1.73 m Weight 89.2 kg Body Mass Index 30.4 - Constitutional Present: no acute distress, well nourished, well developed - Routine HEENT Exam Eye: Present: EOMI ENT: Present: mucous membranes moist, dentition normal - Routine Respiratory Exam Present: diminished air movement (posterior). Absent: wheezes - Routine Cardiovascular Exam Present: RRR, S1, S2. Absent: murmur - Routine Abdominal Exam Present: soft, normoactive bowel sounds, non distended. Absent: tenderness - Routine Extremities Exam Present: normal capillary refill - Routine Skin Exam Present: intact, dry, warm - Routine Neurological Exam Present: alert, oriented X3, CN II-XII intact - Routine Lymphatic Exam Lymphatic: Absent: adenopathy - Routine Psychiatric Exam Present: normal affect, cooperative Results - Labs CBC & Chem 7: 12/17/17 06:36 12/17/17 06:36 Assessment and Plan (1) Left bundle branch block (LBBB) Status: Acute (2) Dyspnea Status: Acute (3) Chest pain, rule out acute myocardial infarction Status: Acute Assessment and Plan: Impression Acute dyspnea Elevated troponin- ? likely type II Chest pain rule out [place] New Left Bundle branch block COPD- chronic oxygen use at 3 L Hypertension Hyperlipidemia BPH Restless legs Plan Serial troponins did slightly elevated however patient remains asymptomatic. He does continue on his baseline oxygen of 3 liters. Would like PT and OT to evaluate patient. Given that he does reside independently. Did discuss patient's case with Dr. Cates who does recommend nuclear stress test later this afternoon. Patient is quite hesitant to undergo this study. He would like to discuss further with Dr. Cates. Again, patient is adamant about being discharged later today. Overall, he appears to be medically stable Taste discussed with attending, Dr. Palma Addendum by Dr. Palma: Seen and examined patient on same day as the above note. Agree with subjective note, physical exam, assessment and plan. Comprehensive physical findings correlate to the above note. Documented on Dragon speech to text. Efforts to correct speech recognition errors performed, but variation may exist - Physician Narrative Narrative: Date: 12/17/17 Time: 1043 Hospital Course Summary Disclaimer: The visit summary below is not to be considered part of the above Progress Note. Hospital Course: Impression Acute dyspnea Chest pain rule out NH New Left Bundle branch block COPD- chronic oxygen use at 3 L Hypertension Hyperlipidemia BPH Restless legs Plan Admit patient to outpatient observation under care of Dr. Palma Continue with chronic oxygen therapy at 3 liters (Baseline) We will add DuoNeb breathing treatments 4 times a day and Pulmicort twice a day. Given underlying history of COPD. Consultation placed to Dr. Cates given recent EKG changes. Will obtain echocardiogram, monitor patient. Cardiac telemetry and obtain serial troponins to rule out acute cardiac event. Given sudden onset of dyspnea. Will obtain a d-dimer to rule out pulmonary emboli. If this is positive may consider CT of the chest. Patient requests to continue his routine Claritin and Mucinex Other home medications are reviewed SCDs to bilateral extremity for DVT prophylaxis Once patient is medically stabilized, may consider PT and OT consults given patient resides independently Patient does wish to be a do not resuscitate and this order is written Will discuss further orders and plan of care with attending, Dr. Palma. At time of discharge medical care will return to primary care provider, Dr. Swartz 12/17 Serial troponins did slightly elevated however patient remains asymptomatic. He does continue on his baseline oxygen of 3 liters. Would like PT and OT to evaluate patient. Given that he does reside independently. Did discuss patient's case with Dr. Cates who does recommend nuclear stress test later this afternoon. Patient is quite hesitant to undergo this study. He would like to discuss further with Dr. Cates. Again, patient is adamant about being discharged later today. Overall, he appears to be medically stable Taste discussed with attending, Dr. Palma
[2017-12-17 11:21] VITALS: O2SAT 96
[2017-12-17 11:42] VITALS: PULSE 69
--- NOTE | 2017-12-17 13:48 | Discharge Summary ---
Discharge Information Date of admission: 12/16/17 17:10 Anticipated date of discharge: 12/17/17 Attending Physician: Arias Palma MD Primary care physician: Levi Swartz MD Consults: 12/16/17 18:38 Physician Consult [CONS] Routine Consulting Provider: Inocente Cates Reason For Exam: chest pressure, EKG changes Ordering Provider has Notified Sand Screener: Yes Comment: already notified - Discharge Diagnosis (1) Left bundle branch block (LBBB) Status: Acute (2) Dyspnea Status: Acute (3) Chest pain, rule out acute myocardial infarction Status: Acute Acute dyspnea Chest pain rule out [place] New Left Bundle branch block COPD- chronic oxygen use at 3 L Hypertension Hyperlipidemia BPH Restless legs - Procedures Procedures: Patient refused nuclear medicine stress test that was scheduled by Dr. Cates for this afternoon. - Laboratory Labs: 12/17/17 06:36 12/17/17 06:36 - Microbiology None - Radiology Radiology: 12/16/17-chest x-ray-no acute 12/17/1754-[id number] read pending - Pathology None History of Present Illness HPI: Steve is a pleasant 72-year-old male with a known history of COPD and chronic oxygen dependency at 3 liters. He reports today around 1530. He was ambulating in the kitchen to make some food and had a sudden onset of increased shortness of breath. He gave himself albuterol nebulizer, however, this did not resolve his symptoms. He called nursing staff for assistance and called EMS. Patient was found to have room air saturations of 75%. Workup in the emergency room was performed. Count was found be slightly elevated at 12.7, hemoglobin 12.7, neutrophils 66%. Chemistry panel unremarkable. Troponin is undetectable, less than 0.012. EKG did reveal a new left bundle branch block was not present in September 2017. A chest x-ray showed no acute cardiopulmonary findings. Given the symptoms of shortness of breath with chest pressure accompanied with EKG changes, Dr. Cates was contacted and recommended admission for further cardiac evaluation and rule out. The hospitalist services were contacted and accepted patient for outpatient admission for further evaluation and treatment. It is expected that his stay will be less than 2 overnights Objective Vital signs: Temperature 96.3 F L 12/17/17 07:34 Pulse Rate 69 12/17/17 08:00 Respiratory Rate 20 12/17/17 11:10 Blood Pressure 156/73 H 12/17/17 07:34 Pulse Oximetry 96 12/17/17 11:10 Height/Weight/BMI: Height 1.73 m Weight 89.2 kg Body Mass Index 30.4 - Constitutional Present: well nourished, well developed - Routine HEENT Exam Eye: Present: EOMI ENT: Present: mucous membranes moist, dentition normal - Routine Respiratory Exam Present: diminished air movement. Absent: wheezes - Routine Cardiovascular Exam Present: RRR, S1, S2. Absent: murmur - Routine Abdominal Exam Present: soft, normoactive bowel sounds, non distended. Absent: tenderness - Routine Extremities Exam Present: normal capillary refill - Routine Skin Exam Present: dry, warm - Routine Neurological Exam Present: alert, oriented X3, CN II-XII intact, sensory deficit - Routine Lymphatic Exam Lymphatic: Absent: adenopathy - Routine Psychiatric Exam Present: normal affect, cooperative Hospital Course This is a general summary of the patient's hospital course. For more details refer to the complete medical record. Hospital course: Impression Acute dyspnea Chest pain rule out DE New Left Bundle branch block COPD- chronic oxygen use at 3 L Hypertension Hyperlipidemia BPH Restless legs Plan Admit patient to outpatient observation under care of Dr. Palma Continue with chronic oxygen therapy at 3 liters (Baseline) We will add DuoNeb breathing treatments 4 times a day and Pulmicort twice a day. Given underlying history of COPD. Consultation placed to Dr. Cates given recent EKG changes. Will obtain echocardiogram, monitor patient. Cardiac telemetry and obtain serial troponins to rule out acute cardiac event. Given sudden onset of dyspnea. Will obtain a d-dimer to rule out pulmonary emboli. If this is positive may consider CT of the chest. Patient requests to continue his routine Claritin and Mucinex Other home medications are reviewed SCDs to bilateral extremity for DVT prophylaxis Once patient is medically stabilized, may consider PT and OT consults given patient resides independently Patient does wish to be a do not resuscitate and this order is written Will discuss further orders and plan of care with attending, Dr. Palma. At time of discharge medical care will return to primary care provider, Dr. Swartz 12/17 Serial troponins did slightly elevated however patient remains asymptomatic. He does continue on his baseline oxygen of 3 liters. Would like PT and OT to evaluate patient. Given that he does reside independently. Did discuss patient's case with Dr. Cates who does recommend nuclear stress test later this afternoon. Patient is quite hesitant to undergo this study. He would like to discuss further with Dr. Cates. Again, patient is adamant about being discharged later today. Overall, he appears to be medically stable Taste discussed with attending, Dr. Palma 12/17- 1350pm- discharge Patient is examined multiple times prior to discharge. Patient is of sound mind and does have the ability to make his own decisions. He states that he would like to decline further nuclear medicine stress test or other cardiac evaluation. He states that he would like discharged today. He plans to follow- up with cardiology in the outpatient setting for 2nd opinion. Patient did document on stress tests consistent that he plans to decline. Will discharge home, he is instructed to follow-up with primary care provider, Dr. Swartz, and relocation manager of his choice. Addendum by Dr. Palma: Seen and examined patient on same day as the above note. Agree with summary note , physical exam, assessment and discharge plan. Comprehensive physical findings correlate to the above note. Documented on Dragon speech to text. Efforts to correct speech recognition errors performed, but variation may exist Resuscitation Status: Do Not Resuscitate Discharge Plan - Discharge Disposition Discharge Date: 12/17/17 Disposition: 01 Discharged Home, Self-Care *Condition: Stable Reason For Visit (Visit label in EMR): Chest pain rule out - Discharge Medications *Discharge Medications: No Action Tamsulosin HCl [Flomax] 0.4 mg PO HS #0 Gabapentin 600 mg PO BID Budesonide 0.5 mg IH PRN PRN PRN Reason: Shortness Of Air Albuterol Neb (0.083%) [Proventil Neb (0.083%)] 2.5 mg AEROSOL Q2H PRN #1 ampul PRN Reason: shortness of breath Lisinopril [Prinivil] 10 mg PO DAILY Amlodipine [Norvasc] 5 mg PO DAILY Aspirin 325 mg PO DAILY Cpm/PE/Dm/Acetaminophen/Guaifn [Tylenol Cold-Flu Day-Nt Caplet] 2 cap PO Q4H PRN PRN Reason: Prn Orders Calcium Carbonate [Calci-Chew] 1,000 mg PO Q4H PRN PRN Reason: Heartburn Acetaminophen 650 mg PO Q5H PRN PRN Reason: Pain Dm/Acetaminophen/Doxylamine [Nighttime Cold-Flu Liquid] 30 ml PO Q4H PRN PRN Reason: Prn Orders Pramipexole Di-HCl [Mirapex] 0.25 mg PO HS Benzonatate [Tessalon Perles] 100 mg PO TID PRN PRN Reason: Cough Atorvastatin [Lipitor] 10 mg PO HS Etodolac 300 mg PO DAILY #0 Guaifenesin [Mucinex] 400 mg PO Q4H PRN PRN Reason: Prn Orders Loratadine [Claritin] 10 mg PO DAILY PRN PRN Reason: Allergy Symptoms - Discharge Packet/Instructions *Diet: Regular diet *Activity: Normal activity as tolerated *Wound Care: None Additional Instructions: Continue to use home oxygen at 3 liters. You need further outpatinet cardiac evaluation. Please schedule follow up with the relocation manager of your choice soon. If chest pain returns or shortness of breath worsens please return to the ER. *Notify Physician if: Worsening shortness of breath, chest pain *During Business Hours Contact: Contact Dr Swartz *After Business Hours Contact: Page oncall physician for Dr Swartz *Pending Lab/Results: No Pending Lab - Referrals/Follow Up *Referrals/Follow Up: Levi Swartz MD [Family Provider] - (Please schedule follow up in 1 week APPOINTMENT ON 12/24 AT 11:15.) - Patient Handouts Patient Handouts: Chest Pain (GEN), COPD (Chronic Obstructive Pulmonary Disease ) (DC) - Dismissal Complete Discharge Instructions are:: Complete Physician Narrative - Narrative Attestation Narrative: Date: 12/17/17 Time: 1344 Addendum entered and electronically signed by Cynthia Escamilla, POWER PRESS OPERATOR 12/17/17 15 :22: 1515-following patient's discharge further discussion regarding findings on echocardiogram are reviewed with attending and Dr. Cates. He does recommend medication changes and stresses the importance of follow-up. I did call Steve at home and he is willing to follow-up with Dr. Cates at his office on Wednesday at 145. Again, I did discuss with Steve the importance of this follow- up. As his condition may be life-threatening. He verbalizes understanding of his own liability by refusing further testing while at [facility]. He is in agreement to return to the emergency room over the next 2 days if symptoms worsen or he has further concerns.
--- NOTE | 2017-12-18 14:49 | Echocardiogram ---
DATE OF STUDY 12/17/2017 INDICATIONS Left bundle branch block. Dyspnea. TECHNICAL QUALITY Technically fair study. Some views exhibit difficult acoustic windows. FINDINGS 1. CARDIAC CHAMBERS: Left ventricle is dilated, measuring 6.4 cm. All other cardiac chambers are normal in size. Aortic root diameter is normal. RV size and contractility appear normal. 2. LEFT VENTRICLE: Wall thickness is normal. Wall motion analysis is abnormal with septal dysmotility present due to LBBB. Global hypokinesis is present. There is moderate LV systolic dysfunction present. Ejection fraction is estimated at about 35%. Mild diastolic dysfunction grade 1/4 is present. No definite intracardiac thrombi were seen. 3. VALVES: Aortic and mitral valve exhibit slight sclerotic changes. Valve excursion is normal. Tricuspid valve structure and motion appear normal with normal valve excursion. 4. DOPPLER: Trace regurgitation involving mitral, tricuspid and aortic valves , none of hemodynamic significance. 5. Systolic pulmonary artery pressure is measured at 31 mmHg. 6. Central venous pressure is normal. 7. No evidence of pericardial effusion, intracardiac masses, thrombi, vegetations or shunts. IMPRESSION 1. LV enlargement. 2. Moderate LV systolic dysfunction. Estimated ejection fraction is 35%. 3. Mild diastolic dysfunction. 4. No significant valvular dysfunction. 5. Mild sclerotic changes of the aortic valve. Report was provided to the primary service nurse practitioner, Cynthia, who is contacting the patient with the findings. [facility]
== END 2017-12-17 14:50 | disposition home or self-care (01) ==
LOC: MED 15:47 → ED 15:47 → MED 17:45
PROVIDERS: ADMIT Family Medicine; ATTEND Family Medicine